=== PATIENT | female | born 1955 | race Caucasian/White ===

== ENCOUNTER 2020-11-29 02:52 | Inpatient (IN) | payer MEDICAID ==
[~2020-11-29] VITALS: Ht 152.4 cm; Wt 73.5 kg
[2020-11-29] MEDS ORDERED: MORPHINE SULFATE 2 MG/ML CPJ (NOT FOR IM USE) IV ONE (03:30)
[2020-11-29] MEDS ORDERED: ONDANSETRON HCL 4MG/2ML INJ IV ONE (03:30)
[2020-11-29] MEDS ORDERED: DEXT 5%/0.9% NACL 1,000 ML IV ONE (03:30)
[2020-11-29 03:38] LABS: BASOPHILS % 0.2 % (0.0-2.0); EOSINOPHILS % 0.4 % (0.0-5.0); HEMATOCRIT. 46.9 % (36.0-48.0); HEMOGLOBIN. 15.2 g/dL (12.0-16.0); LYMPHOCYTES % 12.2 % (20.0-50.0); MEAN CORPUSCULAR HEMOGLOBIN 29.4 pg (28.0-32.0); MEAN CORPUSCULAR VOLUME 90.8 fL (81.0-99.0); MEAN PLATELET VOLUME 9.3 fl (7.4-10.4); MONOCYTES % 3.3 % (2.0-8.0); NEUTROPHILS % 83.9 % (40.0-76.0); PLATELET 286 x1000/uL (130-400); RED BLOOD CELL COUNT 5.17 mill/uL (4.2-5.4); RED CELL DISTRIBUTION WIDTH 13.6 % (11.6-14.6)
[2020-11-29 03:45] LABS: CHLORIDE 104 mEq/L (98-107)
[2020-11-29] MEDS ORDERED: CLONIDINE 0.1MG TABLET PO PRN (06:15)
[2020-11-29] MEDS ORDERED: LORAZEPAM 2MG/ML CPJ IV PRN (06:15)
[2020-11-29] MEDS ORDERED: DIPHENHYDRAMINE 50MG/ML VIAL IV PRN (06:15)
[2020-11-29] MEDS: SODIUM CHLORIDE 0.45% 1,000 ML IV SCH (06:15)
[2020-11-29] MEDS ORDERED: MAGNESIUM/ALUMINUM HYDROXIDE/SIMETHICONE 30ML UDC PO PRN (06:15)
[2020-11-29] MEDS ORDERED: DOCUSATE SODIUM 100MG CAPSULE PO PRN (06:15)
[2020-11-29] MEDS ORDERED: GUAIFENESIN 200MG/10ML SUGAR FREE UDC PO PRN (06:15)
[2020-11-29] MEDS ORDERED: IPRATROPIUM/ALBUTEROL 0.5-3(2.5)MG/3ML NEB HHN PRN (06:15)
[2020-11-29] MEDS ORDERED: HYDROCODONE/ACETAMINOPHEN 5/325MG TABLET PO PRN (06:15)
[2020-11-29] MEDS ORDERED: MORPHINE SULFATE 2 MG/ML CPJ (NOT FOR IM USE) IV PRN (06:15)
[2020-11-29 07:00] LABS: CLARITY URINE CLEAR (CLEAR); COLOR URINE YELLOW (YELLOW); KETONES URINE NEGATIVE (NEGATIVE); LEUKOCYTE ESTERASE URINE 2+ (NEGATIVE); NITRITE URINE NEGATIVE (NEGATIVE); OCCULT BLOOD URINE NEGATIVE (NEGATIVE); PROTEIN URINE TRACE (NEGATIVE); UROBILINOGEN URINE 0.2 E.U./dL (0.2-1.0)
[2020-11-29] MEDS ORDERED: DEXTROSE 50% WATER 50ML SYRINGE IV PRN (07:00)
[2020-11-29 07:17] LABS: *AMPHETAMINES SCREEN URINE NEGATIVE (NEGATIVE); *BARBITURATES SCREEN URINE NEGATIVE (NEGATIVE); *BENZODIAZEPINES SCREEN URINE NEGATIVE (NEGATIVE); *COCAINE SCREEN URINE NEGATIVE (NEGATIVE); METHADONE URINE SCREEN NEGATIVE (NEGATIVE); OPIATES URINE SCREEN PRESUMTIVE POSITIVE (NEGATIVE)
[2020-11-29 07:19] LABS: CANNABINOID URINE SCREEN NEGATIVE (NEGATIVE); PHENCYCLIDINE URINE SCREEN NEGATIVE (NEGATIVE)
[2020-11-29] MEDS ORDERED: IOHEXOL-300 100 ML BOTTLE ONE (07:29)
[2020-11-29] MEDS: INSULIN LISPRO 100 UNITS/ML SUBCUT SCH ×4 (08:20→21:00)
[2020-11-29] MEDS: ENOXAPARIN 40MG/0.4ML SYR SUBCUT SCH (08:48)
[2020-11-29] MEDS: BLOOD SUGAR DIAGNOSTIC STRIP TEST SCH ×4 (09:05→21:45)
[2020-11-29 10:58] LABS: CLARITY URINE CLOUDY (CLEAR); COLOR URINE YELLOW (YELLOW); KETONES URINE NEGATIVE (NEGATIVE); LEUKOCYTE ESTERASE URINE 1+ (NEGATIVE); NITRITE URINE NEGATIVE (NEGATIVE); OCCULT BLOOD URINE TRACE (NEGATIVE); PROTEIN URINE TRACE (NEGATIVE); SPECIFIC GRAVITY URINE 1.032 (1.005-1.030); UROBILINOGEN URINE 0.2 E.U./dL (0.2-1.0)
[2020-11-29 13:42] LABS: HEPATITIS B SURFACE ANTIGEN NEGATIVE
[2020-11-29] MEDS: SODIUM CHLORIDE 0.9% INJ 3ML FLUSH IVF SCH ×2 (14:00→21:56)
[2020-11-29 20:25] VITALS: BP 110/60
[2020-11-29 21:00] VITALS: BP 110/60
[2020-11-30] VITALS (7 sets, daily range): BP systolic 105–146; BP diastolic 44–64
[2020-11-30] MEDS: LEVOFLOXACIN 500MG PREMIX 100 ML IV SCH ×2 (00:32→22:35)
[2020-11-30] MEDS: SODIUM CHLORIDE 0.45% 1,000 ML IV SCH ×2 (02:14→22:17)
[2020-11-30] MEDS: SODIUM CHLORIDE 0.9% INJ 3ML FLUSH IVF SCH ×3 (05:40→22:17)
[2020-11-30] MEDS: INSULIN LISPRO 100 UNITS/ML SUBCUT SCH ×4 (06:24→21:00)
[2020-11-30] MEDS: BLOOD SUGAR DIAGNOSTIC STRIP TEST SCH ×4 (06:24→21:59)
[2020-11-30] MEDS ORDERED: CARV25TA47 PO (08:00)
[2020-11-30] MEDS ORDERED: AMLO10TA4 MT (08:00)
[2020-11-30] MEDS ORDERED: LISI40TA13 MT (08:01)
[2020-11-30] MEDS ORDERED: METF500T MT (08:03)
[2020-11-30] MEDS ORDERED: EMPA25TA MT (08:08)
[2020-11-30 08:21] LABS: BASOPHILS % 0.1 % (0.0-2.0); HEMATOCRIT. 37.1 % (36.0-48.0); HEMOGLOBIN. 12.1 g/dL (12.0-16.0); LYMPHOCYTES % 8.8 % (20.0-50.0); MEAN CORPUSCULAR HEMOGLOBIN 29.2 pg (28.0-32.0); MEAN CORPUSCULAR VOLUME 89.5 fL (81.0-99.0); MEAN PLATELET VOLUME 9.6 fl (7.4-10.4); MONOCYTES % 7.7 % (2.0-8.0); NEUTROPHILS % 83.4 % (40.0-76.0); PLATELET 234 x1000/uL (130-400); RED BLOOD CELL COUNT 4.14 mill/uL (4.2-5.4); RED CELL DISTRIBUTION WIDTH 13.8 % (11.6-14.6)
[2020-11-30] MEDS: ENOXAPARIN 40MG/0.4ML SYR SUBCUT SCH (08:21)
[2020-11-30 08:30] LABS: CHLORIDE 104 mEq/L (98-107)
[2020-11-30] MEDS ORDERED: POTASSIUM CHLORIDE 20MEQ TABLET SR PO NR (09:15)
[2020-11-30] MEDS: ACETAMINOPHEN 325MG TABLET PO PRN (16:16)
[2020-11-30] MEDS ORDERED: NALOXONE HCL 0.4MG/ML VIAL IV PRN (23:15)
[2020-12-01] VITALS: BP 123/64
[2020-12-01 04:00] VITALS: BP 123/66
[2020-12-01] MEDS: SODIUM CHLORIDE 0.9% INJ 3ML FLUSH IVF SCH ×3 (06:15→21:40)
[2020-12-01] MEDS: BLOOD SUGAR DIAGNOSTIC STRIP TEST SCH ×4 (06:19→21:40)
[2020-12-01] MEDS: INSULIN LISPRO 100 UNITS/ML SUBCUT SCH ×5 (06:46→21:40)
[2020-12-01 08:00] VITALS: BP 126/62
[2020-12-01] MEDS: ENOXAPARIN 40MG/0.4ML SYR SUBCUT SCH (08:02)
[2020-12-01] MEDS: ACETAMINOPHEN 325MG TABLET PO PRN ×2 (08:07→21:46)
[2020-12-01] MEDS: ONDANSETRON HCL 4MG/2ML INJ IV PRN (08:07)
[2020-12-01 12:00] VITALS: BP 144/62
[2020-12-01] MEDS: METRONIDAZOLE 500 MG PREMIX 100 ML IV SCH ×2 (15:22→21:40)
[2020-12-01 16:00] VITALS: BP 142/70
[2020-12-01 16:56] LABS: HEMATOCRIT 32.8 % (36.0-48.0); HEMOGLOBIN 10.8 g/dL (12.0-16.0); MEAN CORPUSCULAR HEMOGLOBIN 29.1 pg (28.0-32.0); MEAN CORPUSCULAR VOLUME 88.1 fL (81.0-99.0); PLATELET 223 x1000/uL (130-400); RED BLOOD CELL COUNT 3.72 mill/uL (4.2-5.4); RED CELL DISTRIBUTION WIDTH 13.3 % (11.6-14.6)
[2020-12-01] MEDS: SODIUM CHLORIDE 0.45% 1,000 ML IV SCH (17:29)
[2020-12-01 20:00] VITALS: BP 145/72
[2020-12-01] MEDS: LEVOFLOXACIN 500MG PREMIX 100 ML IV SCH (23:48)
[2020-12-02] VITALS: BP 136/67
[2020-12-02 04:00] VITALS: BP 140/68
[2020-12-02] MEDS: SODIUM CHLORIDE 0.9% INJ 3ML FLUSH IVF SCH ×3 (05:35→21:53)
[2020-12-02] MEDS: METRONIDAZOLE 500 MG PREMIX 100 ML IV SCH ×3 (05:36→23:14)
[2020-12-02] MEDS: BLOOD SUGAR DIAGNOSTIC STRIP TEST SCH ×4 (06:31→21:28)
[2020-12-02] MEDS: INSULIN LISPRO 100 UNITS/ML SUBCUT SCH ×4 (06:31→21:47)
[2020-12-02 08:00] VITALS: BP 137/79
[2020-12-02] MEDS: ENOXAPARIN 40MG/0.4ML SYR SUBCUT SCH (10:04)
[2020-12-02] MEDS: ONDANSETRON HCL 4MG/2ML INJ IV PRN (10:04)
[2020-12-02 12:00] VITALS: BP 145/77
[2020-12-02] MEDS: SODIUM CHLORIDE 0.45% 1,000 ML IV SCH (15:00)
[2020-12-02 16:00] VITALS: BP 134/70
[2020-12-02 20:00] VITALS: BP 148/75
[2020-12-03] VITALS: BP 142/74
[2020-12-03] MEDS: LEVOFLOXACIN 500MG PREMIX 100 ML IV SCH ×2 (00:53→22:26)
[2020-12-03] MEDS: ACETAMINOPHEN 325MG TABLET PO PRN (00:59)
[2020-12-03 04:00] VITALS: BP 142/76
[2020-12-03] MEDS: SODIUM CHLORIDE 0.9% INJ 3ML FLUSH IVF SCH ×3 (05:34→22:26)
[2020-12-03] MEDS: BLOOD SUGAR DIAGNOSTIC STRIP TEST SCH ×4 (06:32→21:00)
[2020-12-03] MEDS: INSULIN LISPRO 100 UNITS/ML SUBCUT SCH ×4 (07:07→23:05)
[2020-12-03] MEDS: METRONIDAZOLE 500 MG PREMIX 100 ML IV SCH ×3 (07:08→22:26)
[2020-12-03 08:00] VITALS: BP 146/69
[2020-12-03] MEDS: ENOXAPARIN 40MG/0.4ML SYR SUBCUT SCH (08:38)
[2020-12-03] MEDS: ONDANSETRON HCL 4MG/2ML INJ IV PRN (11:02)
[2020-12-03] MEDS: SODIUM CHLORIDE 0.45% 1,000 ML IV SCH (11:03)
[2020-12-03 12:00] VITALS: BP 125/101
[2020-12-03 16:00] VITALS: BP 142/104
[2020-12-03 20:00] VITALS: BP 167/81
[2020-12-04] VITALS: BP 157/74
[2020-12-04 04:00] VITALS: BP 152/71
[2020-12-04] MEDS: SODIUM CHLORIDE 0.9% INJ 3ML FLUSH IVF SCH ×3 (06:00→21:58)
[2020-12-04] MEDS: SODIUM CHLORIDE 0.45% 1,000 ML IV SCH (06:15)
[2020-12-04] MEDS: METRONIDAZOLE 500 MG PREMIX 100 ML IV SCH ×3 (06:15→23:34)
[2020-12-04 06:44] LABS: BASOPHILS % 0.2 % (0.0-2.0); EOSINOPHILS % 0.7 % (0.0-5.0); HEMATOCRIT. 31.8 % (36.0-48.0); HEMOGLOBIN. 10.5 g/dL (12.0-16.0); LYMPHOCYTES % 15.2 % (20.0-50.0); MEAN CORPUSCULAR HEMOGLOBIN 29.3 pg (28.0-32.0); MEAN CORPUSCULAR VOLUME 88.8 fL (81.0-99.0); MEAN PLATELET VOLUME 8.7 fl (7.4-10.4); MONOCYTES % 9.8 % (2.0-8.0); NEUTROPHILS % 74.1 % (40.0-76.0); PLATELET 277 x1000/uL (130-400); RED BLOOD CELL COUNT 3.58 mill/uL (4.2-5.4); RED CELL DISTRIBUTION WIDTH 13.9 % (11.6-14.6)
[2020-12-04] MEDS: BLOOD SUGAR DIAGNOSTIC STRIP TEST SCH ×4 (06:46→21:00)
[2020-12-04 06:51] LABS: CHLORIDE 100 mEq/L (98-107)
[2020-12-04] MEDS: INSULIN LISPRO 100 UNITS/ML SUBCUT SCH ×4 (06:53→22:26)
[2020-12-04 08:00] VITALS: BP 138/75
[2020-12-04] MEDS: ENOXAPARIN 40MG/0.4ML SYR SUBCUT SCH (09:00)
[2020-12-04 12:00] VITALS: BP 168/76
[2020-12-04] MEDS: HYDRALAZINE 20MG/ML VIAL IV PRN ×2 (13:14→21:59)
[2020-12-04 14:30] VITALS: BP 134/65
[2020-12-04] MEDS ORDERED: IOHEXOL-300 100 ML BOTTLE ONE (15:10)
[2020-12-04] MEDS ORDERED: SIMETHICONE 40 MG/0.6 ML 30ML ONE (15:10)
[2020-12-04] MEDS ORDERED: PROPOFOL 10MG/ML 100ML 100 ML IV ONE (15:56)
[2020-12-04] MEDS ORDERED: HYDROMORPHONE HCL/PF 2MG/ML (OR) ONE (16:05)
[2020-12-04] MEDS ORDERED: MEPERIDINE HCL/PF 25MG/ML CPJ IV PRN (16:45)
[2020-12-04] MEDS ORDERED: HYDROMORPHONE HCL/PF 2MG/ML CPJ IV PRN (16:45)
[2020-12-04] MEDS ORDERED: LABETALOL 5MG/ML SYR 20 MG/4 ML SYRINGE IV PRN (16:45)
[2020-12-04] MEDS ORDERED: ONDANSETRON HCL 4MG/2ML INJ IV PRN (16:45)
[2020-12-04 19:29] LABS: BASOPHILS % 0.3 % (0.0-2.0); EOSINOPHILS % 0.6 % (0.0-5.0); HEMATOCRIT. 31.3 % (36.0-48.0); HEMOGLOBIN. 10.6 g/dL (12.0-16.0); LYMPHOCYTES % 16.5 % (20.0-50.0); MEAN CORPUSCULAR HEMOGLOBIN 29.2 pg (28.0-32.0); MEAN CORPUSCULAR VOLUME 86.7 fL (81.0-99.0); MEAN PLATELET VOLUME 7.9 fl (7.4-10.4); MONOCYTES % 12.3 % (2.0-8.0); NEUTROPHILS % 70.3 % (40.0-76.0); PLATELET 279 x1000/uL (130-400); RED BLOOD CELL COUNT 3.61 mill/uL (4.2-5.4); RED CELL DISTRIBUTION WIDTH 13.5 % (11.6-14.6)
[2020-12-04 19:40] LABS: CHLORIDE 101 mEq/L (98-107)
[2020-12-04 19:44] LABS: AMYLASE 213 IU/L (25-115)
[2020-12-04 20:00] VITALS: BP_SYST 160; BP_SYST 178; BP_DIAS 73; BP_DIAS 93
[2020-12-04] MEDS: LEVOFLOXACIN 500MG PREMIX 100 ML IV SCH (23:34)
[2020-12-05] VITALS: BP 146/76
[2020-12-05] MEDS: SODIUM CHLORIDE 0.45% 1,000 ML IV SCH ×2 (03:51→21:23)
[2020-12-05 04:00] VITALS: BP 138/68
[2020-12-05] MEDS: SODIUM CHLORIDE 0.9% INJ 3ML FLUSH IVF SCH ×3 (06:34→21:23)
[2020-12-05] MEDS: METRONIDAZOLE 500 MG PREMIX 100 ML IV SCH ×3 (06:34→23:01)
[2020-12-05] MEDS: BLOOD SUGAR DIAGNOSTIC STRIP TEST SCH ×4 (06:41→21:23)
[2020-12-05 07:31] LABS: BASOPHILS % 0.3 % (0.0-2.0); HEMATOCRIT. 33.7 % (36.0-48.0); HEMOGLOBIN. 11.1 g/dL (12.0-16.0); LYMPHOCYTES % 15.5 % (20.0-50.0); MEAN CORPUSCULAR VOLUME 87.8 fL (81.0-99.0); MEAN PLATELET VOLUME 8.2 fl (7.4-10.4); MONOCYTES % 9.4 % (2.0-8.0); NEUTROPHILS % 73.8 % (40.0-76.0); PLATELET 318 x1000/uL (130-400); RED BLOOD CELL COUNT 3.83 mill/uL (4.2-5.4); RED CELL DISTRIBUTION WIDTH 13.6 % (11.6-14.6)
[2020-12-05 07:53] LABS: CHLORIDE 98 mEq/L (98-107)
[2020-12-05 08:00] VITALS: BP 145/64
[2020-12-05] MEDS: ENOXAPARIN 40MG/0.4ML SYR SUBCUT SCH (09:00)
[2020-12-05] MEDS: INSULIN LISPRO 100 UNITS/ML SUBCUT SCH ×4 (09:20→23:02)
[2020-12-05] MEDS ORDERED: ONDANSETRON HCL 4MG/2ML INJ IV PRN ×2 (10:30→14:15)
[2020-12-05] MEDS ORDERED: POTASSIUM CHLORIDE 20MEQ TABLET SR PO NR (10:45)
[2020-12-05 13:18] LABS: INR 1.1; PROTHROMBIN TIME 11.3 sec (9.6-11.0)
[2020-12-05] MEDS ORDERED: IOHEXOL-300 50 ML BOTTLE IV ONE ×2 (13:24→15:10)
[2020-12-05] MEDS ORDERED: LIDOCAINE HCL 1% 20ML VIAL (Pyxis) INJ ONE (13:25)
[2020-12-05] MEDS ORDERED: MEPERIDINE HCL/PF 25MG/ML CPJ IV PRN (14:15)
[2020-12-05] MEDS ORDERED: SODIUM CHLORIDE 0.9% 1,000 ML IV ONE (14:15)
[2020-12-05] MEDS ORDERED: MORPHINE SULFATE 2 MG/ML CPJ (NOT FOR IM USE) IV PRN (14:15)
[2020-12-05] MEDS ORDERED: HYDROMORPHONE HCL/PF 2MG/ML CPJ IV PRN (14:15)
[2020-12-05] MEDS ORDERED: FENTANYL CITRATE/PF 50MCG/ML 2ML VIAL ONE (14:31)
[2020-12-05] MEDS ORDERED: SUCCINYLCHOLINE CHLORIDE 200MG/10ML IV ONE (14:31)
[2020-12-05] MEDS ORDERED: ONDANSETRON HCL 4MG/2ML INJ ONE (14:31)
[2020-12-05] MEDS ORDERED: GLYCOPYRROLATE 0.2 MG/ML 2ML VIAL ONE (14:31)
[2020-12-05] MEDS ORDERED: PROPOFOL 200MG/20ML VIAL IV ONE (14:31)
[2020-12-05] MEDS ORDERED: MIDAZOLAM HCL 2 MG/2 ML VIAL ONE (14:31)
[2020-12-05] MEDS ORDERED: METOCLOPRAMIDE HCL 10MG/2ML VIAL ONE (14:32)
[2020-12-05] MEDS ORDERED: CEFAZOLIN SODIUM 1000MG/VIAL ONE (14:32)
[2020-12-05] MEDS ORDERED: PHENYLEPHRINE HCL 10 MG/ML 1ML (IV VIAL) IV ONE (14:54)
[2020-12-05] MEDS ORDERED: ALBUTEROL 6.7GM HFA INHALER INH NR (15:30)
[2020-12-05] MEDS: ONDANSETRON HCL 4MG/2ML INJ IV PRN (17:52)
[2020-12-05] MEDS ORDERED: ZOLPIDEM TARTRATE 5MG TABLET PO PRN (18:45)
[2020-12-05 19:37] LABS: HEMATOCRIT 29.4 % (36.0-48.0); HEMOGLOBIN 9.8 g/dL (12.0-16.0); MEAN CORPUSCULAR HEMOGLOBIN 29.4 pg (28.0-32.0); MEAN CORPUSCULAR VOLUME 88.6 fL (81.0-99.0); PLATELET 303 x1000/uL (130-400); RED BLOOD CELL COUNT 3.32 mill/uL (4.2-5.4); RED CELL DISTRIBUTION WIDTH 14.1 % (11.6-14.6)
[2020-12-05 19:45] LABS: CHLORIDE 107 mEq/L (98-107)
[2020-12-05 20:00] VITALS: BP 139/82
[2020-12-05 22:06] LABS: AMYLASE 5087 IU/L (25-115)
[2020-12-06] VITALS (7 sets, daily range): BP systolic 121–150; BP diastolic 60–84
[2020-12-06] MEDS: METRONIDAZOLE 500 MG PREMIX 100 ML IV SCH (06:36)
[2020-12-06] MEDS: SODIUM CHLORIDE 0.9% INJ 3ML FLUSH IVF SCH ×4 (06:36→23:52)
[2020-12-06] MEDS: BLOOD SUGAR DIAGNOSTIC STRIP TEST SCH ×4 (06:36→21:01)
[2020-12-06] MEDS ORDERED: POTASSIUM CHLORIDE 20MEQ TABLET SR PO SCH (10:00)
[2020-12-06] MEDS: ENOXAPARIN 40MG/0.4ML SYR SUBCUT SCH (10:53)
[2020-12-06] MEDS: INSULIN LISPRO 100 UNITS/ML SUBCUT SCH ×4 (10:55→21:05)
[2020-12-06 11:00] LABS: CHLORIDE 103 mEq/L (98-107)
[2020-12-06 11:10] LABS: AMYLASE 1277 IU/L (25-115)
[2020-12-06] MEDS: ACETAMINOPHEN 325MG TABLET PO PRN (13:37)
[2020-12-06] MEDS: LEVOFLOXACIN 500MG PREMIX 100 ML IV SCH (13:37)
[2020-12-06] MEDS: SODIUM CHLORIDE 0.45% 1,000 ML IV SCH (18:15)
[2020-12-07 04:00] VITALS: BP 144/71
[2020-12-07 06:59] LABS: CHLORIDE 104 mEq/L (98-107)
[2020-12-07 07:01] LABS: BASOPHILS % 0.2 % (0.0-2.0); HEMATOCRIT. 31.4 % (36.0-48.0); HEMOGLOBIN. 10.4 g/dL (12.0-16.0); LYMPHOCYTES % 13.2 % (20.0-50.0); MEAN CORPUSCULAR HEMOGLOBIN 29.5 pg (28.0-32.0); MONOCYTES % 8.4 % (2.0-8.0); NEUTROPHILS % 77.2 % (40.0-76.0); PLATELET 331 x1000/uL (130-400); RED BLOOD CELL COUNT 3.53 mill/uL (4.2-5.4); RED CELL DISTRIBUTION WIDTH 14.1 % (11.6-14.6)
[2020-12-07 07:03] LABS: AMYLASE 322 IU/L (25-115)
[2020-12-07] MEDS: BLOOD SUGAR DIAGNOSTIC STRIP TEST SCH ×2 (07:10→12:10)
[2020-12-07 08:00] VITALS: BP 167/80
[2020-12-07] MEDS: ENOXAPARIN 40MG/0.4ML SYR SUBCUT SCH (08:53)
[2020-12-07] MEDS: INSULIN LISPRO 100 UNITS/ML SUBCUT SCH ×2 (08:55→13:18)
[2020-12-07] MEDS ORDERED: POTASSIUM CHLORIDE 20MEQ TABLET SR PO SCH (09:00)
[2020-12-07 12:00] VITALS: BP 155/83
[2020-12-07] MEDS: LEVOFLOXACIN 500MG PREMIX 100 ML IV SCH (12:53)
[2020-12-07] MEDS: SODIUM CHLORIDE 0.9% INJ 3ML FLUSH IVF SCH (14:00)
[2020-12-07 16:00] VITALS: BP 167/83
[2020-12-07 18:59] VITALS: BP 167/80
== END 2020-12-07 20:07 | disposition home or self-care (01) ==
LOC: ER 03:58 → MICUSO 04:43 → 8WST 19:33
PROVIDERS: ADMIT Internal Medicine; ATTEND Internal Medicine
PROC: 0FJB8ZZ Inspection of Hepatobiliary Duct, Via Natural or Artificial Opening Endoscopic (ICD-10-PCS; principal; 2020-12-04)
PROC: 0FJD8ZZ Inspection of Pancreatic Duct, Via Natural or Artificial Opening Endoscopic (ICD-10-PCS; 2020-12-04)
PROC: BF141ZZ Fluoroscopy of Gallbladder, Bile Ducts and Pancreatic Ducts using Low Osmolar Contrast (ICD-10-PCS; 2020-12-04)
PROC: 0F9930Z Drainage of Common Bile Duct with Drainage Device, Percutaneous Approach (ICD-10-PCS; 2020-12-05)
DX: K80.51 Calculus of bile duct without cholangitis or cholecystitis with obstruction (principal); K85.10 Biliary acute pancreatitis without necrosis or infection; R65.10 Systemic inflammatory response syndrome (SIRS) of non-infectious origin without acute organ dysfunction; K83.09 Other cholangitis; I11.9 Hypertensive heart disease without heart failure; E87.1 Hypo-osmolality and hyponatremia; E86.0 Dehydration; E11.9 Type 2 diabetes mellitus without complications; R74.01 Elevation of levels of liver transaminase levels; E66.9 Obesity, unspecified; Z20.822 Contact with and (suspected) exposure to COVID-19; K20.90 Esophagitis, unspecified without bleeding; Z79.899 Other long term (current) drug therapy; Z71.3 Dietary counseling and surveillance; Z68.31 Body mass index [BMI] 31.0-31.9, adult
CPT/HCPCS: 36415; 47534; 71045; 74177; 74181; 76000; 80048; 80053; 80305; 81003; 82150; 82962; 83036; 83880; 84443; 84484; 85025; 85027; 86705; 86709; 86803; 87077; 87186; 87340; 87426; 93005; 99285; C1725; C1726; C1769; J0330; J0360; J0690; J1170; J1650; J1815; J1956; J2250; J2270; J2370; J2405; J2704; J2765; J3010; J3490; J7040; J7042; Q9967